=== PATIENT | male | born 1990 | race Caucasian/White ===

== ENCOUNTER 2019-03-12 15:30 | Inpatient (IN) | payer MEDICAID, SELFPAY ==
[2019-03-12 15:40] VITALS: BP 162/111; RESP 20; TEMP 36.8; O2SAT 99; BMI 19.8
--- NOTE | 2019-03-12 15:41 | ED_ITS ---
Entered by Padmini Fleming, acting as scribe for Timoteo Calderon DO Mar 12, 2019 15:30 HPI - Psych General: Chief Complaint: Psychiatric Symptoms Stated Complaint: SI Time Seen by Provider: 03/12/19 15:38 Source: patient Mode of arrival: ambulatory Limitations: no limitations History of Present Illness: HPI Narrative: 28 yo Male presents to ED with complaint of psychiatric symptoms and suicidal ideation. Pt states that he has thought about hurting himself. Pt states he has also thought about hurting others. Pt denies any suicide attempts. Pt states that he started feeling this way a few days ago. Pt states that he is feeling this way because of his excessive drinking and his inability to stop drinking. Pt states that he just lost his job today because of his drinking. MD complaint: suicidal ideation and feels depressed Onset (ago): day(s) (few) Duration: constant History of same: No Relieving factors: none Exacerbating factors: none Context: recent alcohol abuse and significant life stressor (job loss) Associated psychiatric symptoms: depression and suicidal ideation Associated symptoms: Reports depression, homicidal ideation and suicidal ideation Review of Systems General: Reports: 10 or more systems reviewed and unremarkable except in HPI and below Psych: Reports: depression, suicidal ideation and homicidal ideation PFSH ED PFSH: Statuses (acute, chronic, etc) shown below reflect problem list status as previously entered and may not be historically accurate Social History (Updated 03/12/19 @ 16:03 by Padmini Fleming) Smoking and tobacco status: current every day smoker Alcohol intake: current Desire information about alcohol rehabilitation?: Yes Physical Exam Const: COMMON NORMALS: no apparent distress, average body habitus, oriented x3, no limitations, healthy appearing, alert and well nourished HENMT: COMMON NORMALS: normocephalic, head/scalp atraumatic, hearing grossly normal bilaterally, external ears normal, EAC's normal, TM's normal bilaterally, external nose normal, nasal mucous membranes and turbinates normal, moist oral mucous membranes, oropharynx normal, dentition normal and gingiva normal HEAD & SCALP: normocephalic and atraumatic NOSE: external nose normal and nasal mucous membranes and turbinates normal EXTERNAL EAR: Yes external ears normal EXTERNAL AUDITORY CANAL: EAC's normal TYMPANIC MEMBRANE: TM's normal bilaterally Eye: COMMON NORMALS: PERRL, EOMs intact bilaterally, conjunctivae normal, no scleral icterus, no papilledema, normal visual fuentes by confrontation and fundi normal bilaterally CONJUNCTIVA: Yes conjunctivae normal PUPIL: Yes PERRL DIRECT OPHTHALMOSCOPY: Yes no papilledema and Yes fundi normal bilaterally Neck/C-Spine: COMMON NORMALS: full ROM, no lymphadenopathy, supple, no meningeal signs, no JVD, thyroid normal and no carotid bruits THYROID: thyroid normal Chest: COMMONS NORMALS: inspection of chest normal and palpation of chest normal Resp: COMMON NORMALS: normal respiratory effort, no retractions, no use of accessory muscles, clear to auscultation bilaterally and percussion normal AUSCULTATION: clear to auscultation bilaterally PERCUSSION: percussion normal Cardio: COMMON NORMALS: no JVD, regular rate, regular rhythm, S1 normal heart sound, S2 normal heart sound, no gallops, no clicks, no murmurs, no rub and peripheral pulses 2+ throughout RATE: regular rate RHYTHM: regular rhythm HEART SOUNDS: S1 normal and S2 normal PERIPHERAL PULSES: pulses 2+ throughout GI: COMMON NORMALS: normal to inspection, nondistended, normoactive bowel sounds, soft to palpation, non-tender, no hepatosplenomegaly, no masses and no bruits PALPATION: Yes soft and Yes no hepatosplenomegaly : COMMON NORMALS: Yes no CVA tenderness and Yes external exam normal BLADDER/KIDNEY EXAM: Yes no CVA tenderness Back/Pelvis: COMMON NORMALS: no CVA tenderness, thoracic and lumbar spine normal to inspection, no thoracic nor lumbar tenderness, thoraco-lumbar ROM normal and straight leg raise negative bilaterally Extremity: COMMON NORMALS: normal to inspection, full ROM, normal capillary refill, no joint enlargement, no clubbing, cyanosis or edema, no calf tenderness and no pedal edema Neuro: COMMON NORMALS: oriented x3 SENSORIUM/ORIENTATION: Yes alert MENINGEAL SIGNS: Yes no meningeal signs Psych: COMMON NORMALS: thought process normal and speech normal APPEARANCE: Yes grossly normal ATTITUDE: Yes calm SPEECH: Yes normal speech MOOD & AFFECT: Yes depressed mood THOUGHT PROCESS: normal thought process THOUGHT CONTENT: Yes suicidality Skin: COMMON NORMALS: no rashes or lesions noted, no wounds, skin turgor normal, no jaundice, no petechiae and no mottling GENERAL SKIN EXAM: no rashes or lesions noted and turgor normal MDM - Psych Lab Data: Labs: Lab Results 03/12/19 03/12/19 03/12/19 Range/Units 17:22 17:22 18:15 WBC 8.8 (4.0-10.0) 10^3/ uL RBC 4.81 (4.1-5.3) 10^6/u L Hgb 14.8 (11.7-16.6) g/dL Hct 42.7 (42.0-52.0) % MCV 88.8 (80-94) fL MCH 30.8 (28.0-34.0) pg MCHC 34.7 (30.0-36.0) g/dL RDW 13.8 (12.1-15.1) % Plt Count 147 (130-400) 10^3/c mm MPV 10.9 H (7.4-10.4) fL Neut % (Auto) 65.2 % Lymph % (Auto) 26.4 % Mccreary % (Auto) 6.9 % Eos % (Auto) 0.7 % Baso % (Auto) 0.6 % Neut # (Auto) 5.7 (1.8-7.7) 10^3/u L Lymph # (Auto) 2.3 (0.8-4.8) 10^3/u L Mccreary # (Auto) 0.6 (0.2-0.9) 10^3/u L Eos # (Auto) 0.1 (0.0-0.8) 10^3/u L Baso # (Auto) 0.1 (0.0-0.1) 10^3/u L Nucleated RBC % (a uto) 0 % Nucleated RBCs # 0.0 /100WBC Sodium 136 (136-145) mmol/L Potassium 3.5 (3.5-5.1) mmol/L Chloride 96 L (98-107) mmol/L Carbon Dioxide 29 (22-29) mmol/L Anion Gap 14.5 (5-19) BUN 14 (6-20) mg/dL Creatinine 0.6 L (0.7-1.2) mg/dL GFR Calculation 160.4 H (90-130) mL/min Glucose 98 (74-109) mg/dL Calcium 10.1 H (8.6-10.0) mg/Dl Total Bilirubin 1.0 (0.15-1.2) mg/dL AST 44 H (0-40) U/L ALT 36 (0-41) U/L Alkaline Phosphata se 89 (40-130) IU/L Total Protein 7.6 (6.6-8.7) g/dL Albumin 4.9 (3.5-5.2) g/dL Globulin 2.7 (1.3-4.6) g/dL Urine Color Yellow (Yellow) Urine Appearance Clear (CLEAR) Urine pH 6.5 (5-7) Ur Specific Gravit y 1.010 (1.005-1.030) Urine Protein Neg (Negative) Urine Glucose (UA) Norm (Normal) Urine Ketones 1+ H (Negative) Urine Occult Blood Neg (Negative) Urine Nitrate Negative (Negative) Urine Bilirubin Neg (NEGATIVE) Urine Urobilinogen Norm (Negative) mg/dL Ur Leukocyte Lavonne ase Negative (Negative) Salicylates < 0.3 L (3-10) mg/dL Urine Opiates Scre en (Negative) ng/mL Acetaminophen < 5.0 L (10-30) ug/mL Ur Barbiturates Sc reen (Negative) ng/mL Ur Phencyclidine S crn (Negative) ng/mL Ur Amphetamines Sc reen (Negative) ng/mL U Benzodiazepines Scrn (Negative) ng/mL Urine Cocaine Scre en (Negative) ng/mL U Marijuana (THC) Screen (Negative) ng/mL Ethyl Alcohol < 10 (0-10) mg/dL 03/12/19 Range/Units 18:15 WBC (4.0-10.0) 10^3/ uL RBC (4.1-5.3) 10^6/u L Hgb (11.7-16.6) g/dL Hct (42.0-52.0) % MCV (80-94) fL MCH (28.0-34.0) pg MCHC (30.0-36.0) g/dL RDW (12.1-15.1) % Plt Count (130-400) 10^3/c mm MPV (7.4-10.4) fL Neut % (Auto) % Lymph % (Auto) % Mccreary % (Auto) % Eos % (Auto) % Baso % (Auto) % Neut # (Auto) (1.8-7.7) 10^3/u L Lymph # (Auto) (0.8-4.8) 10^3/u L Mccreary # (Auto) (0.2-0.9) 10^3/u L Eos # (Auto) (0.0-0.8) 10^3/u L Baso # (Auto) (0.0-0.1) 10^3/u L Nucleated RBC % (a uto) % Nucleated RBCs # /100WBC Sodium (136-145) mmol/L Potassium (3.5-5.1) mmol/L Chloride (98-107) mmol/L Carbon Dioxide (22-29) mmol/L Anion Gap (5-19) BUN (6-20) mg/dL Creatinine (0.7-1.2) mg/dL GFR Calculation (90-130) mL/min Glucose (74-109) mg/dL Calcium (8.6-10.0) mg/Dl Total Bilirubin (0.15-1.2) mg/dL AST (0-40) U/L ALT (0-41) U/L Alkaline Phosphata se (40-130) IU/L Total Protein (6.6-8.7) g/dL Albumin (3.5-5.2) g/dL Globulin (1.3-4.6) g/dL Urine Color (Yellow) Urine Appearance (CLEAR) Urine pH (5-7) Ur Specific Gravit y (1.005-1.030) Urine Protein (Negative) Urine Glucose (UA) (Normal) Urine Ketones (Negative) Urine Occult Blood (Negative) Urine Nitrate (Negative) Urine Bilirubin (NEGATIVE) Urine Urobilinogen (Negative) mg/dL Ur Leukocyte Lavonne ase (Negative) Salicylates (3-10) mg/dL Urine Opiates Scre en Negative (Negative) ng/mL Acetaminophen (10-30) ug/mL Ur Barbiturates Sc reen Negative (Negative) ng/mL Ur Phencyclidine S crn Negative (Negative) ng/mL Ur Amphetamines Sc reen Negative (Negative) ng/mL U Benzodiazepines Scrn Negative (Negative) ng/mL Urine Cocaine Scre en Negative (Negative) ng/mL U Marijuana (THC) Screen Negative (Negative) ng/mL Ethyl Alcohol (0-10) mg/dL Discharge Plan Discharge Patient Disposition: Home, Self-Care Clinical Impression: Acute psychosis, Suicidal ideation, Depression Condition: Stable Prescriptions: No Action Tylenol Extra Strength 500 mg Tablet 2,500 mg PO DAILY PRN (Reason: Pain) RF: 0 Coding Level of Care Code ED Payroll Officer for Chg Fwd Exam Problem Focused The documentation recorded by the Lonnie keating Carmen, accurately reflects the service I personally performed and the decisions made by , Timoteo Calderon, Mar 12, 2019 15:30
--- NOTE | 2019-03-12 16:15 | PC.NURSE ---
Room stripped of all hazardous items. Patient changed into paper scrubs. Belongings collected from patient and put into psych file cabinet at this time. Hospital sitter present with the patient for monitoring at this time.
[2019-03-12 17:33] LABS: Basophils # 0.1 10^3/uL (0.0-0.1); Basophils % 0.6 %; Eosinophils # 0.1 10^3/uL (0.0-0.8); Eosinophils % 0.7 %; Hematocrit 42.7 % (42.0-52.0); Hemoglobin 14.8 g/dL (11.7-16.6); Lymphocytes # 2.3 10^3/uL (0.8-4.8); Lymphocytes % 26.4 %; Mean Corpuscular HGB Conc 34.7 g/dL (30.0-36.0); Mean Corpuscular Hemoglobin 30.8 pg (28.0-34.0); Mean Corpuscular Volume 88.8 fL (80-94); Mean Platelet Volume 10.9 fL (7.4-10.4); Monocytes # 0.6 10^3/uL (0.2-0.9); Monocytes % 6.9 %; Neutrophils # 5.7 10^3/uL (1.8-7.7); Neutrophils % 65.2 %; Nucleated Red Blood Cells % 0 %; Platelet Count 147 10^3/cmm (130-400); Red Blood Count 4.81 10^6/uL (4.1-5.3); Red Cell Distribution Width 13.8 % (12.1-15.1); White Blood Count 8.8 10^3/uL (4.0-10.0)
[2019-03-12 17:51] LABS: Alanine Aminotransferase 36 U/L (0-41); Albumin Level 4.9 g/dL (3.5-5.2); Alkaline Phosphatase 89 IU/L (40-130); Anion Gap 14.5 (5-19); Aspartate Amino Transferase 44 U/L (0-40); Blood Urea Nitrogen 14 mg/dL (6-20); Calcium 10.1 mg/Dl (8.6-10.0); Carbon Dioxide 29 mmol/L (22-29); Chloride 96 mmol/L (98-107); Globulin 2.7 g/dL (1.3-4.6); Glomerular Filtration Rate 160.4 mL/min (90-130); Glucose 98 mg/dL (74-109); Potassium 3.5 mmol/L (3.5-5.1); Sodium 136 mmol/L (136-145); Total Protein 7.6 g/dL (6.6-8.7)
[2019-03-12 18:11] LABS: Acetaminophen < 5.0 ug/mL (10-30); Alcohol Level < 10 mg/dL (0-10); Salicylate < 0.3 mg/dL (3-10)
[2019-03-12 18:26] LABS: Add Urine Microscopic? NO
[2019-03-12 18:40] LABS: Bilirubin Urine Neg (NEGATIVE); Blood Urine Neg (Negative); Glucose Urine UA Norm (Normal); Ketones Urine 1+ (Negative); Leukocyte Esterase Urine Negative (Negative); Nitrate Urine Negative (Negative); Protein Urine Neg (Negative); Urine Appearance Clear (CLEAR); Urine Color Yellow (Yellow); Urobilinogen Urine Norm (Negative); pH Urine 6.5 (5-7)
[2019-03-12 19:15] LABS: Amphetamines Screen Urine Negative (Negative); Barbiturates Screen Urine Negative (Negative); Benzodiazepines Screen Urine Negative (Negative); Cocaine Screen Urine Negative (Negative); Opiate Screen Urine Negative (Negative); PCP Screen Urine Negative (Negative); THC Screen Urine Negative (Negative)
[2019-03-12 21:12] VITALS: BP 149/90; PULSE 85; RESP 16; TEMP 36.9; O2SAT 96
[2019-03-12 21:22] VITALS: BP 138/94; PULSE 103; RESP 22; TEMP 37.3; O2SAT 95
[2019-03-12 22:15] VITALS: O2SAT 95
[2019-03-12 23:10] VITALS: BP 138/94; PULSE 103; RESP 22; TEMP 37.3; O2SAT 95
[2019-03-13 06:00] VITALS: BP 138/82; PULSE 75; RESP 20; TEMP 36.8; O2SAT 97
[2019-03-13] MEDS: nicotine 2 mg Gum BUCCAL ×7 (06:24→19:56)
[2019-03-13 13:52] VITALS: BP 138/82; PULSE 75; RESP 20; TEMP 36.8; O2SAT 97
[2019-03-13 13:56] VITALS: BP 133/81; PULSE 94; RESP 20; TEMP 36.8; O2SAT 97
--- NOTE | 2019-03-13 15:06 | P.PN_ITS ---
Coding Level of Care Code Acute Slot Service Specialist for Nixon Watson
--- NOTE | 2019-03-13 15:06 | PM.PN ---
Coding Level of Care Code Acute Attenuator for Nixon Watson
--- NOTE | 2019-03-13 16:01 | P.HP_ITS ---
Providers/Chief Complaint Admitting Physician: Ganesh Blue MD Chief Complaint: SI HPI NPU History of Present Illness Reinier Fernandes is a 28 year old male who presents to the neuro psych unit reporting that this is his first hospitalization. He reports is been quite a week. He has a is due in the next week and a half and he began drinking heavily again and was intoxicated when he went to work on Thursday morning. He reports that he came to the emergency room after a discussion with his to get away from the alcohol having desperate thoughts but reporting that he has 2 children and one on the way and so he is adamant that he would not do anything to harm himself or anyone else. He reports that he is not on medication nor has he ever been. He reports that he often does get very depressed but it is often a result of his drinking because. He reports that he had been drinking heavily like this about 4 years ago when he had his got together and he stopped drinking for about 7 or 8 months and things got much better he reports that after that 7 or 8 months he started having a beer here there and over the course of another year he was back to drinking regularly but not heavily. Then he reports 2 months ago for reasons that he is unclear of, likely him having instead of beer started him on a 2-month period of time where he has drank basically every day going from a pint to 1/5 of alcohol now. He reports that when he arrived to the hospital he was very tremulous but only minimally so now. 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 We discussed the risks benefits and alternatives of possibly starting a medication for his depression as well as a medication to combat his craving and help reduce his alcohol intake and he understood and agreed to proceed as is documented in this note. Psychiatric history: As above this is his first hospitalization. Substance abuse history: He endorsed smoking about a pack of cigarettes or more a day, drinking about 1/5 of vodka a day, he denies marijuana use or any other illicit drug use. He is never been to rehab and he had a DUI about 3 years ago. Family history: He reports mental health issues on both sides of his family, addiction issues on both sides of his family, and reports that his mother did have a suicide attempt in her life. No family members with suicide completions reported. Developmental history: He denies any issues with his mom's or delivery with him. He reports that he met his developmental milestones on time, and he denied meeting speech therapy, learning support, emotional support or special education classes once he went off to school. Psychosocial history: His mother and father were together when he was born he has an older sister who also shares the same to parents. He reports that his father has 2 sons that are his half siblings. His mother did not have any additional children. His dad when he was 7 years old. And his mother about 4 years ago. He reports his childhood was pretty good. There was some neglect but he denied any physical or sexual abuse. He did not graduate from high school but he did get his GED when he was 16. He is heterosexual and his longest relationship is the 4 to 5 years that he has been with his . He has been once. He has 2 children almost 3-year-old daughter and almost 1-year-old daughter and a son who was sent to be delivered very shortly. 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 He lives in [place] house [place] that farm with his 2 children and . Legal history: He had been in penitentiary 1 time overnight due to the DUI. Meds NPU Home Medications Medication Instructions Recorded Confirmed Type acetaminophen [Tylenol Extra 2,500 mg PO DAILY PRN 03/12/19 03/12/19 History Strength] Allergies Allergy/AdvReac Type Severity Reaction Status Date / Time Sulfa (Sulfonamide Allergy ALGY-Anaphy Verified 03/12/19 15:49 Antibiotics) laxis PFSH NPU PFSH: Statuses (acute, chronic, etc) shown below reflect problem list status as previously entered and may not be historically accurate Social History (Updated 03/12/19 @ 16:03 by Padmini Fleming) Smoking and tobacco status: current every day smoker Alcohol intake: current Desire information about alcohol rehabilitation?: Yes Mental Status Exam MSE Comments: This is a well-nourished well-developed white male with adequate dress, grooming and eye contact. Poor dentition no abnormal movements except for mild psychomotor retardation. Cooperative with exam in no acute distress. Speech was decreased rate and volume. Mood described as depressed but better, affect congruent. Thought process organized. Thought content: Patient denied any suicidal or homicidal ideations, there were no delusions reported or noted, he denied any auditory or visual hallucinations. Attention and concentration were intact and memory appeared reliable but none were formally tested. He is alert and oriented x3. Insight and judgment are fair. Vitals/I&O/Wt Last Vital Signs Temp 98.3 F 03/13/19 13:56 Pulse 94 03/13/19 13:56 Resp 20 H 03/13/19 13:56 BP 133/81 03/13/19 13:56 Pulse Ox 97 03/13/19 13:56 Weight last 48 hrs Weight 71.486 kg Weight 71.486 kg Weight 68.039 kg A&P Assessment and plan (1) Alcohol abuse with intoxication: This is a 28-year-old white male with a long history of alcohol use and associated depression who presents after resuming heavy drinking about 2 months ago leading to him going to work intoxicated a couple days ago and possibly putting his job, housing and family in jeopardy. He presents open to a trial of medication to help with his cravings as well as referrals to addiction treatment facilities however he believes that his depression basically follows his use and if he is able to discontinue his use his depression will be manageable. 1. Continue current medications. 2. Start ReVia 50 mg p.o. every morning 3. Encouraged individual, group and milieu therapy. 4. Continue every 15 minute checks for safety. 5. Encourage sober living follow-up to the highest level to which he is willing to commit. Status: Acute Code(s): F10.129 - Alcohol abuse with intoxication, unspecified Involuntary Hold Information 96 Hour Hold: 96 Hour Involuntary Admission: Yes 96 Hour Hold Ending Date: 03/17/19 96 Hour Hold Ending Time: 00:00 Attestations U Medical Necessity Statement*: Inpatient hospitalization is medically necessary and the clinically appropriate intervention at this time. He will be in the hospital for over 2 midnights. We will initiate medication and titrate and monitor for effect. Likely length of stay 1 to 3 days. Coding Level of Care Code Acute Therapy Administrative Assistant for g Fwd Diagnoses Alcohol abuse with intoxication F10.129
[2019-03-13] MEDS: naltrexone hcl 50 mg Tablet PO (17:21)
[2019-03-13 21:01] VITALS: BP 121/84; PULSE 74; RESP 19; TEMP 36.7; O2SAT 97
[2019-03-13] MEDS: trazodone 50 mg Tablet PO (21:03)
[2019-03-14] MEDS: nicotine 2 mg Gum BUCCAL ×4 (05:08→12:14)
[2019-03-14 06:00] VITALS: BP 141/91; PULSE 86; RESP 19; TEMP 36.4; O2SAT 95
[2019-03-14] MEDS: naltrexone hcl 50 mg Tablet PO (09:48)
--- NOTE | 2019-03-14 13:52 | PM.NDC ---
Diagnoses at Discharge Discharge Diagnosis (1) Alcohol abuse with intoxication: Status: Acute Reason for Visit Reason for Visit: Reason For Visit: SI Brief History: HPI NPU History of Present Illness Reinier Fernandes is a 28 year old male who presents to the neuro psych unit reporting that this is his first hospitalization. He reports is been quite a week. He has a is due in the next week and a half and he began drinking heavily again and was intoxicated when he went to work on Thursday morning. He reports that he came to the emergency room after a discussion with his to get away from the alcohol having desperate thoughts but reporting that he has 2 children and one on the way and so he is adamant that he would not do anything to harm himself or anyone else. He reports that he is not on medication nor has he ever been. He reports that he often does get very depressed but it is often a result of his drinking because. He reports that he had been drinking heavily like this about 4 years ago when he had his got together and he stopped drinking for about 7 or 8 months and things got much better he reports that after that 7 or 8 months he started having a beer here there and over the course of another year he was back to drinking regularly but not heavily. Then he reports 2 months ago for reasons that he is unclear of, likely him having instead of beer started him on a 2-month period of time where he has drank basically every day going from a pint to 1/5 of alcohol now. He reports that when he arrived to the hospital he was very tremulous but only minimally so now. 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 We discussed the risks benefits and alternatives of possibly starting a medication for his depression as well as a medication to combat his craving and help reduce his alcohol intake and he understood and agreed to proceed as is documented in this note. Psychiatric history: As above this is his first hospitalization. Substance abuse history: He endorsed smoking about a pack of cigarettes or more a day, drinking about 1/5 of vodka a day, he denies marijuana use or any other illicit drug use. He is never been to rehab and he had a DUI about 3 years ago. Family history: He reports mental health issues on both sides of his family, addiction issues on both sides of his family, and reports that his mother did have a suicide attempt in her life. No family members with suicide completions reported. Developmental history: He denies any issues with his mom's or delivery with him. He reports that he met his developmental milestones on time, and he denied meeting speech therapy, learning support, emotional support or special education classes once he went off to school. Psychosocial history: His mother and father were together when he was born he has an older sister who also shares the same to parents. He reports that his father has 2 sons that are his half siblings. His mother did not have any additional children. His dad when he was 7 years old. And his mother about 4 years ago. He reports his childhood was pretty good. There was some neglect but he denied any physical or sexual abuse. He did not graduate from high school but he did get his GED when he was 16. He is heterosexual and his longest relationship is the 4 to 5 years that he has been with his . He has been once. He has 2 children almost 3-year-old daughter and almost 1-year-old daughter and a son who was sent to be delivered very shortly. 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 He lives in [place] house [place] that farm with his 2 children and . Legal history: He had been in care home 1 time overnight due to the DUI. Hospital Course Hospital Course Reinier presented to the emergency room having put his job in jeopardy, having some thoughts of self-harm/lethality and having relapsed on alcohol several months ago. He was admitted to the neuropsychiatric unit and quickly acclimated to the individual, group and milieu therapies provided. He endorsed that his depression is generally related to his alcohol use and once he maintain sobriety his depression resolves. He agreed to a trial of ReVia with the hope of possible utilization of Vivitrol in the future.. He experienced no side effects to the medication. During the hospitalization he had routine laboratory studies which were within normal limits except for a few outliers. Additionally, he had a general medical evaluation which was also within normal limits and revealed no acute processes. Discharge Summary At the time of discharge he denied all lethality, his mood had improved and he agreed to follow-up with the outpatient services arranged by social work. He was evaluated and deemed to be absent credible lethality and had received the maximum benefit from an inpatient hospitalization so he was discharged. Involuntary Hold Information 96 Hour Hold: 96 Hour Involuntary Admission: Yes 96 Hour Hold Ending Date: 03/17/19 96 Hour Hold Ending Time: 00:00 Mental Status Exam MSE Comments: This is a well-nourished well-developed white male with adequate dress, grooming and eye contact. Poor dentition no abnormal movements except for mild psychomotor retardation. Cooperative with exam in no acute distress. Speech was more normal rate and volume. Mood described as better, affect congruent. Thought process organized. Thought content: Patient denied any suicidal or homicidal ideations, there were no delusions reported or noted, he denied any auditory or visual hallucinations. Attention and concentration were intact and memory appeared reliable but none were formally tested. He is alert and oriented x3. Insight and judgment are fair. Discharge Data Vitals: Last Vital Signs Temp 97.6 F 03/14/19 06:00 Pulse 86 03/14/19 06:00 Resp 19 H 03/14/19 06:00 BP 141/91 03/14/19 06:00 Pulse Ox 95 03/14/19 06:00 Discharge Plan Discharge Patient Disposition: Home, Self-Care Condition: Stable Prescriptions: New naltrexone 50 mg Tablet 50 mg PO DAILY 30 Days Qty: 30 RF: 1 Continued Tylenol Extra Strength 500 mg Tablet 2,500 mg PO DAILY PRN (Reason: Pain) RF: 0 Discharge Orders: Discharge Order (Routine); Ordered 03/14/19 Ordered By: Ganesh Blue Patient Instructions: Alcohol Abuse, Naltrexone (By mouth), Depression (DC) Activity Restrictions/Additional Instructions: MOCARS # For counseling and psychiatric medication management at [facility]... You may go to [facility] during the walk-in hours and request initial intake. Walk-in hours 7:30-2:30 Thursday through Thursday at [facility] ([facility]) [address] [facility] [address] [place] [address] Be sure to ask about financial assistance, if needed. Other options for medication management and possibly counseling: [facility] [address] [place], [place] [phone]. [facility]: [address] [place] [address] [id number] [address] [address], [place] ask about substance abuse treatment, if needed. 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
[2019-03-14 14:21] VITALS: BP 149/90; PULSE 85; RESP 19; TEMP 36.4; O2SAT 95
== END 2019-03-14 14:50 | disposition home or self-care (01) | DRG 897 ==
LOC: ER 20:18 → NP 21:01
PROVIDERS: Admitting Provider Psychiatry & Neurology Psychiatry; Emergency Provider Family Medicine; Visit Provider Psychiatry & Neurology Psychiatry
DX: F10.129 Alcohol abuse with intoxication, unspecified (principal); R45.851 Suicidal ideations; F23 Brief psychotic disorder; F17.210 Nicotine dependence, cigarettes, uncomplicated; F32.9 Major depressive disorder, single episode, unspecified
CPT/HCPCS: 36415; 80053; 80307; 81003; 85025; 99284; A9270

== ENCOUNTER 2021-05-21 11:39 | Emergency (ER) | payer MEDICAID, SELFPAY ==
[2021-05-21 11:44] VITALS: BP 146/98; PULSE 89; RESP 18; O2SAT 98; BMI 21.7
--- NOTE | 2021-05-21 11:52 | ED_ITS ---
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 Last tetanus was last year. He has no other complaints or injuries at this time. He reports sensation to the finger as normal. Bleeding is currently controlled. complaint: injury to: left and finger Onset (ago): hour(s) Other Extremity Injury: Left: fingers Other injuries: none Place: work Severity: moderate Relieving factors: none Context: laceration Associated symptoms: Reports no associated symptoms Review of Systems Musc: Reports: extremity pain (L 3rd digit); Denies: extremity swelling, joint pain, joint swelling, joint redness or limited range of motion Skin/Breast: Reports: other (laceration/avulsion L finger) Neuro: Denies: numbness in extremities or sensory changes PFS ED PFSH: Social History Smoking and tobacco status: current every day smoker Alcohol intake: current Desire information about alcohol rehabilitation?: Yes Physical Exam Const: COMMON NORMALS: no acute distress, average body habitus, patient oriented x3, no limitations, alert and well nourished GENERAL APPEARANCE: cooperative ORIENTATION/CONSCIOUSNESS: Yes awake, Yes oriented to person, Yes oriented to place and Yes oriented to time Extremity: GENERAL: Yes normal exam except as noted LEFT UPPER EXTREMITY: Yes hand & digits (sensory to affected digit intact; no nail damage; normal cap refill) Hand Left Front: 1. skin avulsion to distal palmar aspect of L 3rd finger; deepest area overlies DIP joint; I do not visualize any obvious tendon involvement; he is able to flex DIP joint but limited secondary to pain; no visualized bony fragments Neuro: COMMON NORMALS: patient oriented x3, moves all extremities, no focal motor deficits and no sensory deficits noted SENSORIUM/ORIENTATION: Yes alert, Yes oriented to person, Yes oriented to place and Yes oriented to time Skin: NARRATIVE SKIN EXAM: see extremity assessment for pertinent skin findings Course Vital Signs: Vital signs: Vital Signs Pulse Rate 89 05/21/21 11:58 Respiratory Rate 18 05/21/21 11:58 Blood Pressure 146/98 05/21/21 11:58 Pulse Oximetry 98 05/21/21 11:58 MDM - Extremity Injury (Upper) Medical Decision Making Patient with a deep skin avulsion involving the palmar distal aspect of his left third finger. On XR there is no bony involvement. There were a few soft tissue foreign bodies noted-was likely metal given his history. Finger was anesthetized and copiously irrigated with saline and scrubbed with chlorhexidine brush. There is nothing repairable at this time and wound will have to heal by secondary intent. Tetanus is up-to-date. Patient will be placed on antibiotics. Recommended wet-to-dry dressings as well as a thin layer of antibiotic ointment. Will splint finger and have him follow-up with orthopedics for further evaluation of possible flexor tendon injury. 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 Patient agrees to follow up. Return to ED precautions and wound care at home were verbally addressed with patient. Lab Data Radiology Impressions Finger X-Ray 05/21/21 11:52 IMPRESSION: No fracture or dislocation. Soft tissue foreign bodies as above. Discharge Plan Discharge Patient Disposition: Home Clinical Impression: Avulsion of skin of middle finger Qualifiers: Encounter type: initial encounter Qualified Code(s): S61.208A - Unspecified open wound of other finger without damage to nail, initial encounter Condition: Stable Prescriptions: New cephalexin 500 mg capsule 500 mg PO Q6H 7 Days Qty: 28 0RF No Action methylprednisolone [Medrol (Melvin)] 4 mg tablets,dose pack See Rx Instructions PO PER PKG DIR Qty: 21 0RF Rx Instructions: PO PER PKG DIR azithromycin [Zithromax Z-Melvin] 250 mg tablet See Rx Instructions PO .COMPLEX Qty: 6 0RF Rx Instructions: take 500 mg today (day 1), then 250 mg for 4 days (days 2-5) PO promethazine-DM 6.25-15 mg/5 mL syrup 5 - 10 ml PO Q6H PRN (Reason: cough) Qty: 200 1RF albuterol sulfate [ProAir HFA] 90 mcg/actuation HFA aerosol inhaler 2 puff inhalation QID PRN (Reason: shortness of breath or wheezing) Qty: 8.5 6RF budesonide-formoterol [Symbicort] 160-4.5 mcg/actuation HFA aerosol inhaler 2 puff inhalation Q12H Qty: 10.2 6RF Tylenol Extra Strength 500 mg Tablet 2,500 mg PO DAILY PRN (Reason: Pain) 0RF Rx Instructions: PT STATES SOMETIMES HE TAKES MORE THAN ONCE A DAY naltrexone 50 mg Tablet 50 mg PO DAILY 30 Days Qty: 30 1RF Discharge Orders: Discharge ED (Routine); Ordered 05/21/21 Ordered By: Meka Grigsby Coding Level of Care Code ED Educational/Development Assistant for Nixon Watson
--- NOTE | 2021-05-21 11:52 | XR_ITS ---
WS: [id number] XR finger LT min 2V [id number] REASON FOR EXAM: laceration/trauma; 3rd FINDINGS: There is no bony or joint abnormality of the left third finger. There are small radiopaque soft tissue densities in association with the laceration on the ventral canales rface of the third finger the level of the proximal phalanx. XR/XR finger LT min 2V [id number] IMPRESSION: No fracture or dislocation. Soft tissue foreign bodies as above.
[2021-05-21 11:58] VITALS: BP 146/98; PULSE 89; RESP 18; O2SAT 98
--- NOTE | 2021-05-21 13:59 | DCPLANNER ---
Addendum entered by Evita Novak 05/27/21 09:11: Patient had a follow up appointment scheduled for 05.23.21 with ortho - patient did not attend appointment. Original Note: ed case manager had message to schedule a follow up appointment for patient with ortho. ed case manager called the ortho clinic, spoke with Ada, gave clinic patients information. ed case manager was told that patients information would be printed and reviewed. Clinic will call patient with appointment information.
== END 2021-05-21 13:14 | disposition home or self-care (01) ==
PROVIDERS: Emergency Provider Physician Assistant
DX: S61.203A Unspecified open wound of left middle finger without damage to nail, initial encounter (principal); W29.8XXA Contact with other powered hand tools and household machinery, initial encounter; F17.210 Nicotine dependence, cigarettes, uncomplicated
CPT/HCPCS: 73140; 99282

== ENCOUNTER 2024-11-27 20:21 | Emergency (ER) | payer SELFPAY ==
[2024-11-27 20:27] VITALS: BP 162/105; PULSE 99; RESP 16; TEMP 36.6; O2SAT 99; BMI 21.1
--- OUTSIDE RECORDS SUMMARY | 2024-11-27 20:32 | XMS_ITS | Patient Health Record ---
Author Organization [facility] Address [address] [place] [address] Care Team Providers Care Skiver Sock Linings Name Role Phone Dianne Montoya Primary Care Provider DIANNE MONTOYA Unavailable Unavailable Allergies Allergen (clinical drug ingredient) Drug/Non Drug Allergy documented on EMR Reaction Allergy Type Onset Date Status Substance with sulfonamide structure and antibacterial mechanism of action (substance) Sulfa Antibiotics Unknown Drug Allergy Active Reason For Referral No Information Social History Tobacco Use: Social History Observation Description Date Details (start date - stop date) Current Smoker NA - NA Social History Depression Screening Social Info Question Answer Notes PHQ-9 Little interest or pleasure in doing thin gs Not at all Feeling down, depressed, or hopeless Not at all Trouble falling or staying asleep, or sleeping t oo much Not at all Feeling tired or having little energy Not at all Poor appetite or overeating Not at all Feeling bad about yourself, or that you are a failure, or have let yourself or your family down Not at all Trouble concentrating on thi ngs, such as reading the newspaper or watching television Not at all Moving or speaking so slowly that other people could have noticed. Or the opposite ? being so fidgety or restless that you have been moving around a lot more than usual Not at all Thoughts that you would be b sadaf off , or of hurting yourself in some way Not at all Total Score 0 Drugs/Alcohol: Social Info Question Answer Notes Alcohol Screen (Audit-C) Did you have a drink containing alcohol in the past year? No Points 0 Interpretation Negative Tobacco Use: Social Info Question Answer Notes xTobacco Use/Smoking Are you a current smoker Section Notes: 05-19-22 PhQ9 05-19-22 PhQ9 05-19-22 PhQ9 Problems Problem Type SNOMED Code ICD Code Onset Dates Problem Status W/U Status Risk Notes Problem Alcohol abuse ([id number]) Alcohol abuse (F10.10) Active confirmed Plan Of Treatment No Information Insurance Providers Payer Name Payer Address Payer Phone Subscriber Number Group Number Insured Name Patient Relationship to Insured Coverage Start Date Coverage End Date Latoya [address] [facility] [phone] [id number] Reinier Fernandes Self - patient is the insured Medications Administered Medication Instructions Date of Administration Dosage Notes Ketorolac Tromethamine 05/19/2022 60 mg nd [id number] Patient tolerated well. Rocephin 05/19/2022 1 g [id number] Patient tolerated well.
--- NOTE | 2024-11-27 21:11 | CTR_ITS ---
PROCEDURE INFORMATION: Exam: CT Maxillofacial With Contrast Exam date and time: 11/27/2024 9:33 PM Age: 34 years old Clinical indication: Mass, lump, or swelling; Maxilla; C/O left sided dental pain and facial swelling; Additional info: Trismus, abscess TECHNIQUE: Imaging protocol: Computed tomography of the face with contrast. Radiation optimization: All CT scans at this facility use at least one of these dose optimization techniques: automated exposure control; mA and/or kV adjustment per patient size (includes targeted exams where dose is matched to clinical indication); or iterative reconstruction. Contrast material: OMNI 350; Contrast volume: 100 ml; Contrast route: INTRAVENOUS (IV); COMPARISON: No relevant prior studies available. RADIATION DOSE METRICS: Total DLP (mGy-cm): 577.7 FINDINGS: Paranasal sinuses: Moderate mucosal thickening in retention cyst in the left maxillary sinus. No air-fluid levels to suggest acute sinusitis. The right ostiomeatal complex is widely patent. Small amount of fluid in the left ostiomeatal complex. Orbital cavities: Orbits are normal. Globes are unremarkable. Teeth: Dental caries. No suggestion of abscess. Bones: No acute fracture or subluxation. Moderate soft tissue overlying the left mandible and maxilla. Soft tissues: See Bones finding. CT/CT facial bones w con [id number] IMPRESSION: 1. No acute fracture or subluxation. 2. Moderate mucosal thickening in retention cyst in the left maxillary sinus. No air-fluid levels to suggest acute sinusitis.
--- NOTE | 2024-11-27 21:13 | ED_ITS ---
HPI - Dental/Oral 2 General: Chief complaint: Dental/Oral Stated complaint: Lt side face swelling Time Seen by Provider: 11/27/24 20:42 History of Present Illness: 34-year-old gentleman with multiple cavi ties complains of 3 weeks of worsening pain of his right upper jaw. Canine tooth is been removed and you can see the root according to patient. He has association of swelling in his right cheek, and inability to open his mouth. This portion started today. He has been compliant to his fish antibiotics he obtained [id number]. No fevers. Complains of pain. Inability to eat. Associated symptoms: Denies fever(s) Related Data Home Medications ?Medication ?Instructions ?Recorded ?Confirmed acetaminophen 500 mg tablet 2,500 mg PO DAILY PRN Pain 03/12/19 03/12/19 (Tylenol Extra Strength) Previous Rx's ?Medication ?Instructions ?Recorded naltrexone 50 mg tablet 50 mg PO DAILY 30 days #30 t abs 03/14/19 albuterol sulfate 90 mcg/actuation 2 puff inhalation Q ID PRN 04/03/21 aerosol inhaler (ProAir HFA) shortness of breath or wh eezing #8.5 grams azithromycin 250 mg tablet See Rx Instructions PO .COM PLEX #6 04/03/21 (Zithromax Z-Melvin) tabs budesonide-formoterol HFA 160 2 puff inhalation Q12H # 10.2 grams 04/03/21 mcg-4.5 mcg/actuation aerosol inhaler (Symbicort) methylprednisolone 4 mg tablets in See Rx Instructions PO PER PKG DIR 04/03/21 a dose pack (Medrol (Melvin)) #21 ea promethazine-DM 6.25 mg-15 mg/5 mL 5 - 10 ml PO Q6H IN N cough #200 mL 04/03/21 oral syrup chlorhexidine gluconate 0.12 % 15 ml buccal BID #1,893 mL 11/27/24 mouthwash clindamycin HCl 300 mg capsule 300 mg PO Q8H 21 days # 63 caps 11/27/24 (Cleocin HCl) ketorolac 10 mg tablet 10 mg PO Q8H PRN pain 5 days #14 11/27/24 tabs methylprednisolone 4 mg tablets in See Rx Instructions PO .COMPLEX 11/27/24 a dose pack (Medrol (Melvin)) #21 ea Allergies Allergy/AdvReac Type Severity Reaction Status Date / Time Sulfa (Sulfonamide Allergy ALGY-Anaphy Verified 11/27/24 20:31 Antibiotics) laxis Review of Systems 2 Const: Reports: fatigue; Denies: fever(s) or chills ENMT: Reports: dental pain and sinus pain; Denies: throat pain, change in hearing, tinnitus, disequilibrium, nasal discharge, nasal congestion, nasal obstruction or post nasal drip Card: Denies: chest pain or palpitations Resp: Denies: dyspnea or non-productive cough GI: Denies: abdominal pain, nausea or vomiting : Denies: flank pain or difficulty urinating Musc: Denies: neck pain, back pain, extremity pain, extremity swelling, joint pain, joint swelling, joint redness or limited range of motion Neuro: Denies: numbness in extremities or sensory changes Psych: Denies: anxiety or depression PFSH ED 2 PFSH: Social History Smoking and tobacco/nicotine status: current every day tobacco/nicotine user Alcohol intake: current Physical Exam 2 Const: COMMON NORMALS: no acute distress, average body habitus and patient oriented x3 HENMT: FACE & SINUS IMAGES: 1. edema MOUTH: trismus TEETH & GINGIVA IMAGES: 1. Fracture to root Chest: COMMONS NORMALS: normal inspection of the chest and normal palpation of entire chest wall Resp: COMMON NORMALS: normal respiratory effort, No retractions and clear to auscultation bilaterally AUSCULTATION: clear to auscultation bilaterally Cardio: COMMON NORMALS: regular rate and regular rhythm RATE: regular rate RHYTHM: regular rhythm GI: COMMON NORMALS: Normal to inspection, nondistended, normoactive bowel sounds present, Soft to palpation and non-tender PALPATION: Yes Soft to palpation : COMMON NORMALS: Yes no CVA tenderness BLADDER/KIDNEY EXAM: Yes no CVA tenderness Back/Pelvis: COMMON NORMALS: no CVA tenderness Neuro: COMMON NORMALS: patient oriented x3 Course 2 Vital Signs: Vital signs: Vital Signs Temperature 97.9 F 11/27/24 20:27 Pulse Rate 87 11/27/24 23:57 Respiratory Rate 16 11/27/24 20:27 Blood Pressure 139/82 11/27/24 23:57 Pulse Oximetry 98 11/27/24 23:57 MDM - Dental/Oral Medical Decision Making Patient is 34-year-old gentleman with a fractured tooth, obtained amoxicillin finished antibiotics [id number], has been on these for 3 weeks, despite this, worsening swelling to his jaw, now he cannot open his mouth. His initial exam was very concerning for abscess. On CT there were moderate mucosal thickening in retention cyst in the left maxillary sinus however there was no acute sinusitis or abscess noted. I suspect this is secondary to the fact patient was on antibiotics. I will change his coverage to clindamycin 3 times daily, and give him an extended course, I have also asked him to call his dentist in the morning and remove the root to this tooth]. Patient states understanding. Lab Data 11/27/24 21:19 11/27/24 21:[address] 11/27/24 21:11 IMPRESSION: 1. No acute fracture or subluxation. 2. Moderate mucosal thickening in retention cyst in the left maxillary sinus. No air-fluid levels to suggest acute sinusitis. Laboratory Results WBC 11.21 10^3/uL (3.29-11.43) 11/27/24 21:19 RBC 4.88 10^6/uL (3.85-5.65) 11/27/24 21:19 Hgb 15.10 g/dL (11.27-16.99) 11/27/24 21: Hct 44.1 % (37-53) 11/27/24 21: MCV 90.4 fl (82-101) 11/27/24 21: MCH 30.9 pg (27-33) 11/27/24 21: MCHC 34.2 g/dL (30-55) 11/27/24 21:19 RDW 13.8 % (12.1-15.1) 11/27/24 21: Plt Count 157 10^3/cmm (157-399) 11/27/24 21: MPV 10.8 fL (7.4-10.4) H 11/27/24 21:19 Neut % (Auto) 70.1 % 11/27/24 21: Lymph % (Auto) 20.3 % 11/27/24 21: Gladwin % (Auto) 8.1 % 11/27/24 21: Eos % (Auto) 0.4 % 11/27/24 21:19 Baso % (Auto) 0.7 % 11/27/24 21:19 Neut # (Auto) 7.85 10^3/uL (1.8-7.7) H 11/27/24 21:19 Lymph # (Auto) 2.3 10^3/uL (0.8-4.8) 11/27/24 21:19 Gladwin # (Auto) 0.9 10^3/uL (0.2-0.9) 11/27/24 21:19 Eos # (Auto) 0.1 10^3/uL (0.0-0.8) 11/27/24 21:19 Baso # (Auto) 0.1 10^3/uL (0.0-0.1) 11/27/24 21:19 Nucleated RBC % (auto) 0 % 11/27/24 21:19 Nucleated RBCs # 0.0 /100WBC 11/27/24 21:19 Sodium 140 mmol/L (136-145) 11/27/24 21:19 Potassium 4.3 mmol/L (3.5-5.1) 11/27/24 21:19 Chloride 101 mmol/L (98-107) 11/27/24 21:19 Carbon Dioxide 20 mmol/L (22-29) L 11/27/24 21:19 Anion Gap 23.3 (5-19) H 11/27/24 21:19 BUN 10 mg/dL (6-20) 11/27/24 21:19 Creatinine 0.6 mg/dL (0.7-1.2) L 11/27/24 21:19 GFR Calculation 154.2 mL/min (90-130) H 11/27/24 21:19 Glucose 81 mg/dL (65-115) 11/27/24 21:19 Calculated Osmolality 288 mOsm/kg (285-295) 11/27/24 21:19 Calcium 9.1 mg/dL (8.5-10.5) 11/27/24 21:19 Total Bilirubin 0.8 mg/dL (0.15-1.2) 11/27/24 21:19 AST 52 U/L (0-40) H 11/27/24 21:19 ALT 48 U/L (0-41) H 11/27/24 21:19 Alkaline Phosphatase 75 U/L (40-130) 11/27/24 21:19 C-Reactive Protein 21.7 mg/L (0.0-4.9) H 11/27/24 21:19 Total Protein 7.2 g/dL (6.6-8.7) 11/27/24 21:19 Albumin 4.5 g/dL (3.5-5.2) 11/27/24 21:19 Globulin 2.7 g/dL (1.3-4.6) 11/27/24 21:19 All radiology interpretation(s) finalized by discharge Discharge Plan Discharge Patient Disposition: Home Clinical Impression: Left maxillary sinus opacification, Dental caries Condition: Stable Prescriptions: New clindamycin HCl [Cleocin HCl] 300 mg capsule 300 mg PO Q8H 21 Days Qty: 63 0RF ketorolac 10 mg tablet 10 mg PO Q8H PRN (Reason: pain) 5 Days Qty: 14 0RF methylprednisolone [Medrol (Melvin)] 4 mg tablets,dose pack See Rx Instructions .ROUTE .COMPLEX Qty: 21 0RF Rx Instructions: for 6 days chlorhexidine gluconate 0.12 % mouthwash 15 ml buccal BID Qty: 1893 0RF No Action methylprednisolone [Medrol (Melvin)] 4 mg tablets,dose pack See Rx Instructions PO PER PKG DIR Qty: 21 0RF Rx Instructions: PO PER PKG DIR azithromycin [Zithromax Z-Melvin] 250 mg tablet See Rx Instructions PO .COMPLEX Qty: 6 0RF Rx Instructions: take 500 mg today (day 1), then 250 mg for 4 days (days 2-5) PO promethazine-DM 6.25-15 mg/5 mL syrup 5 - 10 ml PO Q6H PRN (Reason: cough) Qty: 200 1RF albuterol sulfate [ProAir HFA] 90 mcg/actuation HFA aerosol inhaler 2 puff inhalation QID PRN (Reason: shortness of breath or wheezing) Qty: 8.5 6RF budesonide-formoterol [Symbicort] 160-4.5 mcg/actuation HFA aerosol inhaler 2 puff inhalation Q12H Qty: 10.2 6RF Tylenol Extra Strength 500 mg Tablet 2,500 mg PO DAILY PRN (Reason: Pain) Rx Instructions: PT STATES SOMETIMES HE TAKES MORE THAN ONCE A DAY naltrexone 50 mg Tablet 50 mg PO DAILY 30 Days Qty: 30 1RF Discharge Orders: Discharge ED (Routine); Ordered 11/27/24 Ordered By: Tania Morfin Discharge Diet: Soft Mechanical Patient Instructions: Dental Caries (Cavities), Mouth Care (ED), Patient Portal & [facility] Instructions Activity Restrictions/Additional Instructions: - Set an alarm to call the dentist in the morning to be reevaluated Take antibiotics as directed. Clindamycin that is for your teeth, is difficult not to have diarrhea with. Make sure you eat active culture yogurt daily to avoid infectious diarrhea Take all of your medication as directed. You are given extended dose of clindamycin given your situation. 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
[2024-11-27] MEDS: piperacillin-tazobactam 4.5 GM in sodium chloride 0.9% (plus) 50 ML IV (21:26)
[2024-11-27 21:29] LABS: Hematocrit 44.1 % (37-53); Hemoglobin 15.10 g/dL (11.27-16.99); Mean Corpuscular HGB Conc 34.2 g/dL (30-55); Mean Corpuscular Hemoglobin 30.9 pg (27-33); Mean Corpuscular Volume 90.4 fl (82-101); Nucleated Red Blood Cells % 0 %; Platelet Count 157 10^3/cmm (157-399); Red Blood Count 4.88 10^6/uL (3.85-5.65); White Blood Count 11.21 10^3/uL (3.29-11.43)
[2024-11-27 21:30] VITALS: BP 149/86; PULSE 81; O2SAT 96
[2024-11-27] MEDS: iohexol 350 mg/mL 500 mL Btl (per mL) IV (21:36)
[2024-11-27 21:46] LABS: Alanine Aminotransferase 48 U/L (0-41); Albumin Level 4.5 g/dL (3.5-5.2); Alkaline Phosphatase 75 U/L (40-130); Blood Urea Nitrogen 10 mg/dL (6-20); Calcium 9.1 mg/dL (8.5-10.5); Carbon Dioxide 20 mmol/L (22-29); Chloride 101 mmol/L (98-107); Globulin 2.7 g/dL (1.3-4.6); Glucose 81 mg/dL (65-115); Osmolality Calculated 288 mOsm/kg (285-295); Sodium 140 mmol/L (136-145); Total Protein 7.2 g/dL (6.6-8.7)
[2024-11-27 21:58] LABS: Creatinine Clr Calc Pharmacy 188.8616
[2024-11-27 21:59] LABS: Anion Gap 23.3 (5-19); Aspartate Amino Transferase 52 U/L (0-40); Potassium 4.3 mmol/L (3.5-5.1)
[2024-11-27] MEDS: orphenadrine 30 mg/mL Inj 2 mL 60 MG IVP (22:13)
[2024-11-27] MEDS: ondansetron 2 mg/ML SDV 2 mL 4 MG IVP (22:17)
[2024-11-27 23:57] VITALS: BP 139/82; PULSE 87; O2SAT 98
== END 2024-11-27 23:45 | disposition home or self-care (01) ==
PROVIDERS: Emergency Provider Physician Assistant
DX: J34.89 Other specified disorders of nose and nasal sinuses (principal); K02.9 Dental caries, unspecified; Z72.0 Tobacco use
CPT/HCPCS: 36415; 70487; 80053; 85025; 86140; 87040; 96374; 96375; 99285; J1885; J2270; J2360; J2405; J2543; J7030